=== PATIENT | female | born 1945 | race Two or more races ===

== ENCOUNTER 2023-02-14 20:11 | Emergency (ER) | payer OTHER ==
[~2023-02-14] VITALS: Ht 152.4 cm; Wt 63.6 kg
[2023-02-14] MEDS ORDERED: SODIUM CHLORIDE 0.9% 1,000 ML IV ONE (20:45)
[2023-02-14] MEDS ORDERED: ONDANSETRON HCL 4 MG/2 ML VIAL IV ONE (20:45)
[2023-02-14] MEDS ORDERED: HYDROmorphone HCL 2 MG/ML VL/or syr IM ONE (21:00)
[2023-02-14 21:43] LABS: Basophils # (auto) 0.1 10 ^3/uL (0-0.2); Basophils % (auto) 0.4 % (0.0-2.0); Eosinophils # (auto) 0 10 ^3/uL (0-0.8); Hematocrit 44.8 % (36.0-46.0); Hemoglobin 14.4 g/dL (12.2-16.2); Lymphocytes # (auto) 3.5 10 ^3/uL (0.4-5.4); Lymphocytes % (auto) 19.5 % (10.0-50.0); Mean Corpuscular Hemoglobin 28.9 pg (28.0-32.0); Mean Corpuscular Hgb Conc. 32.1 g/dL (32.0-36.0); Mean Corpuscular Volume 90.1 fL (80.0-100.0); Monocytes # (auto) 1.8 10 ^3/uL (0-1.3); Monocytes % (auto) 9.9 % (0.0-12.0); Neutrophils # (auto) 12.7 10 ^3/uL (1.6-8.6); Neutrophils % (auto) 70.2 % (37.0-80.0); Nucleated Red Blood Cells % 0.1 %; Red Blood Cells 4.98 10^6/uL (4.0-5.20); Red Cell Distribution Width 16.8 % (11.8-14.3); White Blood Cell 18.1 10^3/uL (4.4-10.8)
[2023-02-14 22:01] LABS: Alanine Aminotransferase 39 U/L (7-40); Albumin 5.5 g/dL (3.2-4.8); Alkaline Phosphatase 196 U/L (46-116); Anion Gap 15 (5-15); Aspartate Aminotransferase 43 U/L (13-40); BUN/Creatinine Ratio 17.8 (10.0-20.0); Bilirubin, Total 1.1 mg/dL (0.2-1.0); Blood Urea Nitrogen 38 mg/dL (9-23); Calcium 10.5 mg/dL (8.7-10.4); Carbon Dioxide 20 mmol/L (20-30); Chloride 103 mmol/L (98-107); Glucose 238 mg/dL (74-106); Lipase 44 U/L (12-53); Magnesium 1.8 mg/dL (1.6-2.6); Sodium 138 mmol/L (136-145); Total Protein 8.7 g/dL (5.7-8.2)
[2023-02-14 22:02] LABS: Lactic Acid w/Reflex 2.8 mmol/L (0.4-2.0)
[2023-02-14 23:51] VITALS: PULSE 120; RESP 16; O2SAT 90
[2023-02-15] MEDS ORDERED: PIPERACILLIN-TAZOB 3.375GM 100 ML IV ONE
[2023-02-15] MEDS ORDERED: VANCOMYCIN PER PHARMACY 0 MG IV SCH
[2023-02-15] MEDS ORDERED: VANCOMYCIN 1GM/250ML 250 ML IV ONE (00:30)
[2023-02-15] MEDS ORDERED: SODIUM CHLORIDE 0.9% 1,000 ML IV ONE (01:00)
[2023-02-15 05:17] LABS: Urine Bacteria NONE SEEN /hpf (None Seen); Urine Blood Negative /uL (Negative); Urine Clarity HAZY (Clear); Urine Color Yellow (Yellow); Urine Protein, UAD 1+ (Negative); Urine Specific Gravity 1.026 (1.001-1.035); Urine Urobilinogen Normal (Negative); Urine WBC 2 /hpf (0 - 5)
[2023-02-15] MEDS ORDERED: ONDANSETRON HCL 4 MG/2 ML VIAL IV ONE (07:00)
[2023-02-15] MEDS ORDERED: HYDROmorphone HCL 2 MG/ML VL/or syr IV ONE (07:00)
[2023-02-15 10:00] VITALS: BP 136/70; PULSE 102; RESP 18; TEMP 98.1; O2SAT 98
== END 2023-02-15 11:49 | disposition short-term general hospital (02) ==
LOC: ER 20:11
DX: K56.609 Unspecified intestinal obstruction, unspecified as to partial versus complete obstruction (principal)
CPT/HCPCS: 36415; 74176; 80053; 81001; 83605; 83690; 83735; 83880; 84484; 85025; 87040; 96365; 96368; 96372; 96375; 96376; 99285; J1170; J2405; J2543; J3370; J7030

== ENCOUNTER 2023-12-24 17:36 | Emergency (ER) | payer OTHER ==
[~2023-12-24] VITALS: Ht 152.4 cm; Wt 67.2 kg
[2023-12-24 20:05] LABS: Basophils # (auto) 0.1 10 ^3/uL (0-0.2); Basophils % (auto) 0.4 % (0.0-2.0); Eosinophils # (auto) 0 10 ^3/uL (0-0.8); Hematocrit 43.1 % (36.0-46.0); Hemoglobin 14.1 g/dL (12.2-16.2); Lymphocytes # (auto) 2.2 10 ^3/uL (0.4-5.4); Lymphocytes % (auto) 13.1 % (10.0-50.0); Mean Corpuscular Hemoglobin 29.7 pg (28.0-32.0); Mean Corpuscular Hgb Conc. 32.6 g/dL (32.0-36.0); Monocytes # (auto) 1.7 10 ^3/uL (0-1.3); Monocytes % (auto) 10.4 % (0.0-12.0); Neutrophils # (auto) 12.7 10 ^3/uL (1.6-8.6); Neutrophils % (auto) 76.1 % (37.0-80.0); Platelet Count (auto) 120 10^3/uL (140-450); Red Blood Cells 4.74 10^6/uL (4.0-5.20); Red Cell Distribution Width 16.8 % (11.8-14.3); White Blood Cell 16.7 10^3/uL (4.4-10.8)
[2023-12-24] MEDS: IOHEXOL 300 MG/ML 100ML BOTTLE IJ ONE (20:25)
[2023-12-24 20:31] LABS: Alanine Aminotransferase 38 U/L (7-40); Albumin 4.7 g/dL (3.2-4.8); Alkaline Phosphatase 120 U/L (46-116); Anion Gap 11 (5-15); Aspartate Aminotransferase 34 U/L (13-40); BUN/Creatinine Ratio 15.1 (10.0-20.0); Blood Urea Nitrogen 22 mg/dL (9-23); Calcium 10.1 mg/dL (8.7-10.4); Carbon Dioxide 20 mmol/L (20-30); Chloride 106 mmol/L (98-107); Glucose 227 mg/dL (74-106); Lipase 33 U/L (12-53); Potassium 4.4 mmol/L (3.5-5.1); Sodium 137 mmol/L (136-145)
[2023-12-24 20:32] LABS: Bilirubin, Total 1.7 mg/dL (0.2-1.0)
[2023-12-24] MEDS: ONDANSETRON HCL 4 MG/2 ML VIAL IV ONE (23:49)
[2023-12-24] MEDS: SODIUM CHLORIDE 0.9% 500 ML IV ONE (23:49)
[2023-12-24] MEDS: PIPERACILLIN-TAZOB 3.375GM 100 ML IV SCH (23:49)
[2023-12-25 04:27] VITALS: BP 145/62; PULSE 91; RESP 19; TEMP 98.4; O2SAT 97
== END 2023-12-25 04:57 | disposition home or self-care (01) ==
LOC: ER 17:36
DX: K56.609 Unspecified intestinal obstruction, unspecified as to partial versus complete obstruction (principal); D72.829 Elevated white blood cell count, unspecified; N28.9 Disorder of kidney and ureter, unspecified; E11.65 Type 2 diabetes mellitus with hyperglycemia; I10 Essential (primary) hypertension; E03.9 Hypothyroidism, unspecified
CPT/HCPCS: 36415; 74176; 80053; 83690; 83880; 84484; 85025; 96365; 96366; 96375; 99285; J2405; J2543; J7040; Q9967